=== PATIENT | female | born 1955 | race Caucasian/White ===

== ENCOUNTER → 2024-10-31 17:13 | Outpatient (CLI) | payer MEDICARE, OTHER, SELFPAY ==
--- NOTE | 2024-10-31 17:19 | DI.MRI.S_ITS ---
PROCEDURE: MR LUMBAR SPINE WO CON INDICATIONS: low back pain/ incontinence/gait issues TECHNIQUE: Noncontrast sagittal T1 spin echo and T2 fast echo, sagittal STIR, and T2 fast spin echo through the lumbar spine. In cases with scoliosis, additional coronal T2 fast spin echo may be performed. COMPARISON: None. FINDINGS: Image quality: Excellent. Alignment and Curvature: There is normal bony alignment. Bone Marrow: Decompressive laminectomies at L4 and L5. No instrumentation Spinal Cord: Conus medullaris terminates at the L1 level. Visualized cord demonstrates normal signal and size. Paraspinous Soft Tissues: No paravertebral masses. T12-L1: Subarticular right focal disc protrusion/extrusion with superior migration in the right lateral recess extends up to the upper T12 level. Disc fragment fills the right lateral recess results in [id number] central stenosis. No foraminal stenosis. L1-L2: Disc bulge and arthropathy. Mild central stenosis. No foraminal stenosis L2-L3: Asymmetric left disc bulge fills the left lateral recess extends into the left foramen. Mild central stenosis. Moderate left foraminal stenosis. Moderate right foraminal stenosis. L3-L4: Disc bulge and arthropathy with posterior decompression. No instrumentation. No central stenosis. Moderate left and mild right foraminal stenosis L4-L5: Disc bulge and arthropathy. Posterior decompression. No central stenosis. Arthropathy. Moderate left and mild right foraminal stenosis. L5-S1: Disc bulge and arthropathy. No central or foraminal stenosis. Left-sided sacral perineural cysts remodel the neural foramen IMPRESSION: Subarticular right T12-L1 focal disc protrusion/extrusion with superior migration fills the right lateral recess Asymmetric left disc bulge at L2-3 fills the left lateral recess and extends into the left neural foramen. Moderate stenosis. Decompressive laminectomies at L4 and L5 without instrumentation. Approved by: Tiburcio Rosario M.D. on 11/01/2024 at 16:18
== END ==
PROVIDERS: PCP Family Medicine; Referring Provider Family Medicine; Visit Provider Family Medicine
DX: M51.25 Other intervertebral disc displacement, thoracolumbar region (principal); M51.369 Other intervertebral disc degeneration, lumbar region without mention of lumbar back pain or lower extremity pain; M48.061 Spinal stenosis, lumbar region without neurogenic claudication; M51.379 Other intervertebral disc degeneration, lumbosacral region without mention of lumbar back pain or lower extremity pain; M47.816 Spondylosis without myelopathy or radiculopathy, lumbar region; M47.817 Spondylosis without myelopathy or radiculopathy, lumbosacral region; M54.9 Dorsalgia, unspecified; G96.191 Perineural cyst; R20.0 Anesthesia of skin; R26.9 Unspecified abnormalities of gait and mobility; Z98.890 Other specified postprocedural states
CPT/HCPCS: 72148

== ENCOUNTER → 2025-02-05 09:11 | Outpatient (CLI) | payer MEDICARE, OTHER, SELFPAY ==
[2025-02-05 11:07] LABS: Add Manual Diff / Slide Review NO; Hematocrit 42.4 % (36-46); Hemoglobin 14.3 g/dL (12.0-16.0); Lymphocytes Absolute Auto 1200 /uL (1100-4500); Mean Corpuscular HGB Conc 33.7 % (30-36); Mean Corpuscular Hemoglobin 29.7 PG (26-34); Mean Corpuscular Volume 88.1 fL (80-100); Platelet Count 219 X10^3/uL (150-400)
[2025-02-05 11:19] LABS: Hemoglobin A1C% w Est Avg Glu 6.1 % (4.0-6.0)
[2025-02-05 11:26] LABS: Alanine Aminotransferase 34 IU/L (<35); Albumin 4.2 g/dL (3.5-5.0); Albumin Globulin Ratio 1.7 (1.0-2.8); Alkaline Phosphatase 76 U/L (38-126); Blood Urea Nitrogen 13 mg/dL (7-17); Calcium 9.0 mg/dL (8.4-10.2); Carbon Dioxide 30 mmol/L (22-32); Chloride 100 mmol/L (98-107); Cholesterol 196 mg/dL (140-199); Estimated Glomerular Filt Rate > 60 mL/min (>60); Globulin 2.5 g/dL (1.7-4.1); Glucose 111 mg/dL (70-99); HDL Cholesterol 98 mg/dL (40-60); HEMOLYSIS < 15 (0-50); Potassium 3.9 mmol/L (3.4-5.1); Sodium 138 mmol/L (137-145); Total Protein 6.7 g/dL (6.3-8.2); Triglycerides 104 mg/dL (35-150)
== END ==
PROVIDERS: PCP Family Medicine; Referring Provider Family Medicine; Visit Provider Family Medicine
DX: Z00.00 Encounter for general adult medical examination without abnormal findings (principal); R73.03 Prediabetes; E78.2 Mixed hyperlipidemia; I10 Essential (primary) hypertension; E78.5 Hyperlipidemia, unspecified
CPT/HCPCS: 36415; 80053; 80061; 83036; 85025

== ENCOUNTER → 2025-04-28 10:25 | Outpatient (CLI) | payer MEDICARE, OTHER, SELFPAY ==
[2025-04-28 11:21] LABS: Alanine Aminotransferase 38 IU/L (<35); Albumin 4.4 g/dL (3.5-5.0); Albumin Globulin Ratio 1.6 (1.0-2.8); Alkaline Phosphatase 76 U/L (38-126); Blood Urea Nitrogen 12 mg/dL (7-17); Calcium 9.3 mg/dL (8.4-10.2); Carbon Dioxide 27 mmol/L (22-32); Chloride 106 mmol/L (98-107); Estimated Glomerular Filt Rate > 60 mL/min (>60); Globulin 2.7 g/dL (1.7-4.1); Glucose 114 mg/dL (70-99); HEMOLYSIS < 15 (0-50); Potassium 4.1 mmol/L (3.4-5.1); Sodium 140 mmol/L (137-145); Total Protein 7.1 g/dL (6.3-8.2)
== END ==
PROVIDERS: PCP Family Medicine; Referring Provider Family Medicine; Visit Provider Family Medicine
DX: E78.2 Mixed hyperlipidemia (principal); I10 Essential (primary) hypertension; M25.511 Pain in right shoulder; M54.50 Low back pain, unspecified; G89.29 Other chronic pain
CPT/HCPCS: 36415; 80053